=== PATIENT | male | born 1950 | race African-American/Black ===

== ENCOUNTER 2022-03-01 09:05 | Inpatient (IN) | payer OTHER ==
[~2022-03-01] VITALS: Ht 152.4 cm; Wt 85.7 kg
[2022-03-01] MEDS ORDERED: METOPROLOL SUCC25 MG PO (09:41)
[2022-03-01] MEDS ORDERED: TAMS0.4C PO (09:41)
[2022-03-01] MEDS ORDERED: SINGULAIR10 MG PO (09:42)
[2022-03-01] MEDS ORDERED: SIMVASTATIN5 MG PO (09:42)
[2022-03-01] MEDS ORDERED: NEURONTIN300 MG PO (09:43)
[2022-03-01] MEDS ORDERED: ZITHROMAX200 MG PO (09:43)
--- NOTE | 2022-03-01 09:43 | NUR ---
SE RECIBE PACIENTE ALERTA, ORIENTADO X 3 ESFERAS REFIERE TENER MALESTAR GENERAL, FIEBRE, TOS Y DOLOR EN PECHO AL TOSER. SE ESTIMAN S/V TEMPERATURA 100.4 SE UBICA EN SARAH DE ESPERA.
--- NOTE | 2022-03-01 11:28 | NUR ---
SE LLAMA PTE PARA TX MEDICO, SE ENCUENTRA EN XRAY.
--- NOTE | 2022-03-01 12:32 | NUR ---
SE OREINTA PTE SOBRE TX, REFIERE ENTENDER. SE REALIZA KAYDEN DE MUESTRAS Y VENOPUNCION LA ANGIO #22 BAJO MEDIDAS ASEPTICAS. PTE PENDIENTE A RESULTADOS DE LLAB.
== END 2022-03-28 13:11 | disposition expired | DRG 808 ==
LOC: ER 09:05 → MEDI 18:21 → SEC-K 18:21 → MEDI 20:29 → ICU 03-27 18:16
PROVIDERS: ADMIT Internal Medicine; ATTEND Internal Medicine
PROC: 4A12X4Z Monitoring of Cardiac Electrical Activity, External Approach (ICD-10-PCS; principal; 2022-03-01)
PROC: BW251ZZ Computerized Tomography (CT Scan) of Chest, Abdomen and Pelvis using Low Osmolar Contrast (ICD-10-PCS; 2022-03-02)
PROC: CW1NLZZ Planar Nuclear Medicine Imaging of Whole Body using Gallium 67 (Ga-67) (ICD-10-PCS; 2022-03-07)
PROC: B24BYZZ Ultrasonography of Heart with Aorta using Other Contrast (ICD-10-PCS; 2022-03-14)
PROC: 30233N1 Transfusion of Nonautologous Red Blood Cells into Peripheral Vein, Percutaneous Approach (ICD-10-PCS; 2022-03-15)
PROC: 5A0955A Assistance with Respiratory Ventilation, Greater than 96 Consecutive Hours, High Flow/Velocity Cannula (ICD-10-PCS; 2022-03-15)
PROC: BW241ZZ Computerized Tomography (CT Scan) of Chest and Abdomen using Low Osmolar Contrast (ICD-10-PCS; 2022-03-16)
PROC: BN251ZZ Computerized Tomography (CT Scan) of Facial Bones using Low Osmolar Contrast (ICD-10-PCS; 2022-03-19)
PROC: BW2410Z Computerized Tomography (CT Scan) of Chest and Abdomen using Low Osmolar Contrast, Unenhanced and Enhanced (ICD-10-PCS; 2022-03-24)
PROC: 5A09457 Assistance with Respiratory Ventilation, 24-96 Consecutive Hours, Continuous Positive Airway Pressure (ICD-10-PCS; 2022-03-27)
PROC: 02HV33Z Insertion of Infusion Device into Superior Vena Cava, Percutaneous Approach (ICD-10-PCS; 2022-03-28)
DX: D61.818 Other pancytopenia (principal); J18.1 Lobar pneumonia, unspecified organism; A41.9 Sepsis, unspecified organism; J96.01 Acute respiratory failure with hypoxia; B34.9 Viral infection, unspecified; D58.9 Hereditary hemolytic anemia, unspecified; D72.819 Decreased white blood cell count, unspecified; D69.59 Other secondary thrombocytopenia; G50.0 Trigeminal neuralgia; R13.19 Other dysphagia; K12.0 Recurrent oral aphthae; I10 Essential (primary) hypertension; E78.00 Pure hypercholesterolemia, unspecified; N20.0 Calculus of kidney; Z68.36 Body mass index [BMI] 36.0-36.9, adult